=== PATIENT | male | born 1965 | race Caucasian/White ===

== ENCOUNTER → 2021-04-27 | Outpatient (CLI) | payer OTHER, MEDICARE ==
[~2021-04-27] MED LIST: D3-200050 MCG PO; ELIQUIS2.5 MG PO; NORCO5 PO; RENAL-VITE TAB0.8 MG PO; SENSIPAR 30 MG30 MG PO
== END | disposition home or self-care (01) ==
LOC: M.LAB 13:43
PROVIDERS: ATTEND Surgery
DX: Z01.818 Encounter for other preprocedural examination (principal); N18.6 End stage renal disease; Z20.822 Contact with and (suspected) exposure to COVID-19; Z98.890 Other specified postprocedural states; Z79.899 Other long term (current) drug therapy; Z88.0 Allergy status to penicillin

== ENCOUNTER → 2021-04-28 | Day surgery (SDC) | payer OTHER, MEDICARE ==
--- NOTE | ~2021-04-28 | OP ---
[facility] [address] [place] [address] OPERATIVE REPORT Name: IVONNE ANN Room: [facility]#: [id number] Admission: 04/28/21 Attend Phys: Soham Velazquez Discharge: Date of : 63 Report #: [id number] THIS REPORT FOR: cc: Joseph Mccoy Bradley L. DO Patterson,Soham Lopez MD ~ DATE OF SURGERY: 04/28/2021 PREOPERATIVE DIAGNOSIS: End-stage renal disease. POSTOPERATIVE DIAGNOSIS: End-stage renal disease. OPERATION: 1. Laparoscopic peritoneal dialysis catheter. 2. Laparoscopic omentopexy. SURGEON: Soham Velazquez MD ANESTHESIA: General. ESTIMATED BLOOD LOSS: Minimal. SPECIMENS: None. DESCRIPTION OF PROCEDURE: After informed consent was obtained, the patient was brought to the operating room and placed supine. SCDs were placed and working, preoperative antibiotics were administered, general anesthesia was induced. The abdomen was prepped and draped in the usual sterile fashion. A 5 mm incision was made in the left upper quadrant. A 5 mm trocar was placed under direct vision. Pneumoperitoneum was established. Left-sided 5 mm trocar was then placed under direct vision. Overall, the abdomen was fairly clean. There were some adhesions up to the abdominal wall of omentum. Otherwise, there were not too many adhesions. Omentum was grasped and retracted up to the right upper quadrant. It was tied in place with a 0 Vicryl suture. This completed the omentopexy. An 8 mm trocar was placed in the left rectus sheath. A 62 cm Covidien catheter was inserted. It was placed through the 8 mm trocar and the tip was placed down into the pelvis. The trocar was removed. The catheter was then tunneled to the left upper quadrant of the abdomen. It flushed easily with 750 mL of heparinized saline. It drained 250 mL easily. The ports were removed under direct vision. The skin was closed with 4-0 Monocryl. Incisions were dressed with Steri-Strips. COMPLICATIONS: [place] [id number] OPERATIVE REPORT Name: IVONNE ANN Room: [facility]#: [id number] Admission: 04/28/21 Attend Phys: Soham Velazquez Discharge: Date of : 63 Report #: [id number] DISPOSITION: The patient was taken to recovery in satisfactory condition. By: [id number] Velazquez MD /nt
[2021-04-28 13:47] LABS: HEMATOCRIT 38.8 % (42.0-52.0); HEMOGLOBIN 13.1 gm/dL (14.0-18.0); MCH 30.8 pg (26.0-34.0); MCHC 33.9 g/dL (28.0-37.0); MCV 90.8 fL (80.0-100.0); RBC 4.27 mil/uL (4.50-6.00); RDW-CV 13.2 % (10.5-14.5); WBC 10.6 thou/uL (4.0-11.0)
[2021-04-28 13:58] LABS: CALCIUM 8.2 mg/dL (8.5-10.1); CREATININE 10.2 mg/dL (0.6-1.3); POTASSIUM 4.9 mmol/L (3.5-5.1)
[2021-04-28 14:05] LABS: APTT 27.6 Seconds (25.0-31.3); PROTIME 10.6 Seconds (9.20-11.50)
== END | disposition home or self-care (01) ==
LOC: M.SUR
PROVIDERS: Anesthesiology; ATTEND Surgery
DX: N18.6 End stage renal disease (principal); J44.9 Chronic obstructive pulmonary disease, unspecified; K21.9 Gastro-esophageal reflux disease without esophagitis; G47.30 Sleep apnea, unspecified; F17.210 Nicotine dependence, cigarettes, uncomplicated; Z90.5 Acquired absence of kidney; Z98.890 Other specified postprocedural states; Z79.899 Other long term (current) drug therapy; Z88.0 Allergy status to penicillin